=== PATIENT | male | born 1955 | race Caucasian/White ===

== ENCOUNTER 2017-01-18 15:07 | Inpatient (IN) | payer BC, SELFPAY ==
[~2017-01-18] VITALS: Ht 175.3 cm; Wt 101.2 kg
[~2017-01-18 15:07] MED LIST: IBUPROFEN800 M1 PO; IMODIUM2 MG/10 ML GT; NKM; NORCO 5-325 TA1 EACH ORAL; ZOFRAN4 MG ORAL
[2017-01-18 15:23] VITALS: BP 157/94
[2017-01-18] MEDS ORDERED: Ketorolac 30mg Inj IV ONE (15:45)
[2017-01-18 16:18] LABS: KETONES,URINE 2+ (NEGATIVE); LEUKOCYTE ESTERASE ,URINE 1+ (NEGATIVE); NITRITE,URINE NEGATIVE (NEGATIVE); PH,URINE 5 (4.5-8.0); PROTEIN,URINE 2+ (NEGATIVE); UROBILINOGEN,URINE 4 MG/DL (0.0-1.0)
[2017-01-18 16:19] LABS: BASOPHILS % (AUTO) 0.6 % (0.0-2.0); EOSINOPHILS % (AUTO) 0.6 % (0.0-3.0); MEAN CORPUSCULAR HEMOGLOBIN 29.7 PG (27.0-31.0); MEAN CORPUSCULAR HGB CONC 33.6 G/DL (32.0-36.0); MEAN CORPUSCULAR VOLUME 88 FL (80-99); MEAN PLATELET VOLUME 8.3 FL (6.5-10.1); NEUTROPHILS % (AUTO) 76.8 % (45.0-75.0); PLATELET COUNT 190 K/UL (150-450); RED BLOOD COUNT 4.88 M/UL (4.70-6.10); RED CELL DISTRIBUTION WIDTH 12.5 % (11.6-14.8)
[2017-01-18 16:23] LABS: APPEARANCE,URINE SLIGHTLY CLOUDY
[2017-01-18 16:30] VITALS: BP 129/78
[2017-01-18 16:30] LABS: ALBUMIN/GLOBULIN RATIO 1.1 (1.0-2.7); CALCIUM 9.5 mg/dL (8.6-10.2); CREATININE 1.3 mg/dL (0.7-1.2); GLOMERULAR FILTRATION RATE 56.5 mL/min (>60); POTASSIUM 3.5 mEQ/L (3.4-4.9)
[2017-01-18 16:31] LABS: AMORPHOUS SEDIMENT,UR MODERATE /LPF; BACTERIA,URINE MODERATE /HPF
--- NOTE | 2017-01-18 16:51 | Emergency Room Report ---
History of Present Illness General Chief Complaint: Male Urogenital Problems Source: Patient Present Illness HPI 61-year-old male presents ED complaining of abdominal pain. Notes lower abdominal pain which started today. And inability to urinate starting today. Denies history of prostate problems. Pain is lower, right-sided, 8/10, sharp. Nonradiating. No aggravating or relieving factors. Denies fevers or chills. Denies nausea or vomiting. Patient was seen by PMD Dr. Tong referred patient to ED for further workup. Denies any other associated symptoms Allergies: Coded Allergies: MORPHINE (Verified Allergy, Mild, 02/19/14) FAINTS Patient History Past Medical History: none Past Surgical History: none Pertinent Family History: none Social History: Denies: alcohol use, drug use, smoking Immunizations: UTD Reviewed Nursing Documentation: PMH: Agreed, PSxH: Agreed Nursing Documentation-PMH Past Medical History: No Stated History Review of Systems All Other Systems: negative except mentioned in HPI Physical Exam Vital Signs Date Time Temp Pulse Resp B/P Pulse Ox O2 Delivery O2 Flow Rate FiO2 01/18/17 15:08 98.1 77 18 176/94 98 Room Air Sp02 EP Interpretation: reviewed, normal General Appearance: no apparent distress, alert, GCS 15, non-toxic Head: normocephalic Eyes: bilateral eye PERRL, bilateral eye normal inspection ENT: normal ENT inspection Neck: normal inspection Respiratory: chest non-tender, lungs clear, normal breath sounds, speaking full sentences Cardiovascular #1: regular rate, rhythm, no edema Gastrointestinal: normal bowel sounds, soft, non-distended, no guarding, no rebound, tenderness - suprapubic/RLQ Rectal: deferred Genitourinary: no CVA tenderness Musculoskeletal: normal inspection Neurologic: alert, oriented x3, responsive, motor strength/tone normal, sensory intact, speech normal Psychiatric: normal inspection Skin: normal inspection Lymphatic: normal inspection Medical Decision Making Diagnostic Impression: Primary Impression: Nephrolithiasis Additional Impressions: Pyelonephritis ARF (acute renal failure) Qualified Codes: N17.9 - Acute kidney failure, unspecified ER Course Hospital Course 61-year-old M presents to ED with RLQ pain. unable to urinate Differential diagnosis includes-appendicitis, cholecystitis, kidney stone, pyelonephritis Clinical course Patient placed on stretcher. After initial history and physical I ordered labs , IV fluids, pain medications and CT scan. marquez catheter placed. Labs - no leukocytosis, Cr 1.3, LFTs normal, UA - gross blood + bacteria CT scan shows 5mm stone right UVJ with hydronephrosis. given abx. given IVFs. given flomax. Because of increasing creatinine, urinary retention and infection I believe patient should be admitted. Patient be admitted to Dr. Sosa as per request of Dr Tong I feel this is a highly complex case requiring extensive working including EKG/ Rhythm strip, Xray/CT/US, Blood/urine lab work, repeat exams while in ED, and administration of strong opiates/narcotics for pain control, admission to hospital or close patient follow up. Diagnosis - kidney stone, pyelonephritis, ARF Admitted to floor in serious condition Labs Test 01/18/17 15:50 White Blood Count 9.0 K/UL (4.8-10.8) Red Blood Count 4.88 M/UL (4.70-6.10) Hemoglobin 14.5 G/DL (14.2-18.0) Hematocrit 43.1 % (42.0-52.0) Mean Corpuscular Volume 88 FL (80-99) Mean Corpuscular Hemoglobin 29.7 PG (27.0-31.0) Mean Corpuscular Hemoglobin Concent 33.6 G/DL (32.0-36.0) Red Cell Distribution Width 12.5 % (11.6-14.8) Platelet Count 190 K/UL (150-450) Mean Platelet Volume 8.3 FL (6.5-10.1) Neutrophils (%) (Auto) 76.8 % (45.0-75.0) Lymphocytes (%) (Auto) 17.0 % (20.0-45.0) Monocytes (%) (Auto) 5.0 % (1.0-10.0) Eosinophils (%) (Auto) 0.6 % (0.0-3.0) Basophils (%) (Auto) 0.6 % (0.0-2.0) Urine Color Brown Urine Appearance Slightly cloudy Urine pH 5 (4.5-8.0) Urine Specific [place] 1.025 (1.005-1.035) Urine Protein 2+ (NEGATIVE) Urine Glucose (UA) Negative (NEGATIVE) Urine Ketones 2+ (NEGATIVE) Urine Occult Blood 5+ (NEGATIVE) Urine Nitrite Negative (NEGATIVE) Urine Bilirubin Negative (NEGATIVE) Urine Urobilinogen 4 MG/DL (0.0-1.0) Urine Leukocyte Esterase 1+ (NEGATIVE) Urine RBC 10-15 /HPF (0 - 0) Urine WBC 5-10 /HPF (0 - 0) Urine Squamous Epithelial Cells None /LPF (NONE/OCC) Urine Amorphous Sediment Moderate /LPF (NONE) Urine Bacteria Moderate /HPF (NONE) Sodium Level 136 mEQ/L (135-145) Potassium Level 3.5 mEQ/L (3.4-4.9) Chloride Level 95 mEQ/L (98-107) Carbon Dioxide Level 25 mEQ/L (20-30) Anion Gap 16 (5-15) Blood Urea Nitrogen 21 mg/dL (7-23) Creatinine 1.3 mg/dL (0.7-1.2) Estimat Glomerular Filtration Rate 56.5 mL/min (>60) Glucose Level 144 mg/dL (74-106) Calcium Level 9.5 mg/dL (8.6-10.2) Total Bilirubin 0.8 mg/dL (0.0-1.2) Aspartate Amino Transf (AST/SGOT) 13 U/L (5-40) Alanine Aminotransferase (ALT/SGPT) 18 U/L (3-41) Alkaline Phosphatase 49 U/L (40-129) Total Protein 7.0 g/dL (6.6-8.7) Albumin 3.8 g/dL (3.5-5.2) Globulin 3.2 g/dL Albumin/Globulin Ratio 1.1 (1.0-2.7) Lipase 102 U/L (< 60) CT/MRI/US Diagnostic Results CT/MRI/US Diagnostic Results : Imaging Test Ordered: CT A/P Impression 5mm stone at UVJ with moderate hydronephrosis Last Vital Signs Date Time Temp Pulse Resp B/P Pulse Ox O2 Delivery O2 Flow Rate FiO2 01/18/17 15:23 98.0 81 11 157/94 99 Room Air Status: improved Disposition: ADMITTED INPATIENT Condition: Serious THEODORE COHEN M.D. January 18, 2017 16:51
[2017-01-18 17:30] VITALS: BP 131/90
[2017-01-18] MEDS ORDERED: cefTRIAXone 1 GM in NS 55 ML IVPB ONE (17:45)
[2017-01-18] MEDS ORDERED: Tamsulosin 0.4mg cap ORAL ONE (17:45)
[2017-01-18 18:34] VITALS: BP 135/87
[2017-01-18 19:20] VITALS: BP 119/66
[2017-01-18] MEDS ORDERED: Miralax 17gm pkt ORAL PRN (20:00)
[2017-01-18] MEDS ORDERED: Ketorolac 30mg Inj IV PRN (20:00)
[2017-01-18] MEDS ORDERED: Norco 10mg/325mg tab ORAL PRN (20:00)
[2017-01-18] MEDS ORDERED: Norco 5mg/325mg tab ORAL PRN (20:00)
--- NOTE | 2017-01-18 20:21 | History and Physical ---
History of Present Illness General Date patient seen: January 18, 2017 Time patient seen: 20:20 Reason for Hospitalization: UTI, ureteral calculus Present Illness HPI 61y/o male with no sig pmh who presents with R flank and groin pain. Per pt noted R flank pain abt 3 weeks ago and urine was darker. He drank more fluids and pain improved. Then he developed R groin pain on day of presentation to ED. Pain was sharp 8/10, worse with movement. No f/c, n/v, d/c, chest pain, SOB. He went to see his PCP Dr. Tong who referred pt to ED for further eval. In ED, pt noted to have U/A with possible infection. CT a/p showed R 5mm UVJ stone w/ some hydronephrosis. Pt was given IVFs, Toradol, Flomax, Ceftriaxone. Allergies: Coded Allergies: MORPHINE (Verified Allergy, Mild, 02/19/14) FAINTS Medication History Scheduled No Known Medications* (NKM - No Known Medications*), 0 ., (Reported) Discontinued Medications Hydrocodone Bit/Acetaminophen 5-325* ([place] 5-325*), 1 TAB ORAL Q6H PRN for For Pain Discontinued Reason: Pt stopped taking med Ibuprofen (Ibuprofen), 800 MG PO EVERY 8 HOURS Discontinued Reason: Pt stopped taking med Loperamide HCl (Loperamide), 2 MG GT EVERY 3 HOURS Discontinued Reason: Pt stopped taking med Ondansetron (Zofran), 4 MG ORAL Q6H PRN for Nausea & Vomiting Discontinued Reason: Pt stopped taking med Patient History History Provided By: Patient, Family Member, Medical Record, PMD Healthcare decision maker NONE Resuscitation status Advanced Directive on File Past Medical/Surgical History Past Medical/Surgical History: (1) No significant past medical history (2) No significant past surgical history Family History Family History: Patient reports no known family medical history. Social History Social History: (1) No significant social history Review of Systems Constitutional: Reports: no symptoms Eye: Reports: no symptoms ENT: Reports: no symptoms Respiratory: Reports: no symptoms Cardiovascular: Reports: no symptoms Gastrointestinal: Reports: no symptoms Genitourinary: Reports: pain, retention Musculoskeletal: Reports: no symptoms Skin: Reports: no symptoms Psychiatric: Reports: no symptoms Neurological: Reports: no symptoms Endocrine: Reports: no symptoms Hematologic/Lymphatic: Reports: no symptoms Physical Exam Physical Exam Narrative General: alert, cooperative, no distress, appears stated age Head: normocephalic, without obvious abnormality, atraumatic Eyes: conjunctivae/corneas clear. PERRL, EOM's intact Throat: lips, mucosa, and tongue normal. MMM Neck: supple, symmetrical, trachea midline, and no JVD Lungs: clear to auscultation bilaterally Heart: regular rate and rhythm, S1, S2 normal, no murmur, click, rub or gallop Abdomen: soft, non-tender, non-distended, bowel sounds normal; no masses or organomegaly : +R groin TTP Extremities: extremities normal, atraumatic, no cyanosis or edema Pulses: 2+ and symmetric Skin: skin color, texture, turgor normal; no rashes or lesions Neurologic: grossly normal, no focal deficits Last 24 Hour Vital Signs Date Time Temp Pulse Resp B/P Pulse Ox O2 Delivery O2 Flow Rate FiO2 01/18/17 19:20 98.2 76 16 119/66 96 Room Air 01/18/17 18:34 98.2 76 18 135/87 97 Room Air 01/18/17 17:30 83 14 131/90 95 Room Air 01/18/17 16:30 98.3 87 18 129/78 96 Room Air 01/18/17 15:23 98.0 81 11 157/94 99 Room Air 01/18/17 15:08 98.1 77 18 176/94 98 Room Air Laboratory Tests Test 01/18/17 15:50 White Blood Count 9.0 K/UL (4.8-10.8) Red Blood Count 4.88 M/UL (4.70-6.10) Hemoglobin 14.5 G/DL (14.2-18.0) Hematocrit 43.1 % (42.0-52.0) Mean Corpuscular Volume 88 FL (80-99) Mean Corpuscular Hemoglobin 29.7 PG (27.0-31.0) Mean Corpuscular Hemoglobin Concent 33.6 G/DL (32.0-36.0) Red Cell Distribution Width 12.5 % (11.6-14.8) Platelet Count 190 K/UL (150-450) Mean Platelet Volume 8.3 FL (6.5-10.1) Neutrophils (%) (Auto) 76.8 % (45.0-75.0) H Lymphocytes (%) (Auto) 17.0 % (20.0-45.0) L Monocytes (%) (Auto) 5.0 % (1.0-10.0) Eosinophils (%) (Auto) 0.6 % (0.0-3.0) Basophils (%) (Auto) 0.6 % (0.0-2.0) Urine Color Brown Urine Appearance Slightly cloudy Urine pH 5 (4.5-8.0) Urine Specific [place] 1.025 (1.005-1.035) Urine Protein 2+ (NEGATIVE) H Urine Glucose (UA) Negative (NEGATIVE) Urine Ketones 2+ (NEGATIVE) H Urine Occult Blood 5+ (NEGATIVE) H Urine Nitrite Negative (NEGATIVE) Urine Bilirubin Negative (NEGATIVE) Urine Urobilinogen 4 MG/DL (0.0-1.0) H Urine Leukocyte Esterase 1+ (NEGATIVE) H Urine RBC 10-15 /HPF (0 - 0) H Urine WBC 5-10 /HPF (0 - 0) H Urine Squamous Epithelial Cells None /LPF (NONE/OCC) Urine Amorphous Sediment Moderate /LPF (NONE) H Urine Bacteria Moderate /HPF (NONE) H Sodium Level 136 mEQ/L (135-145) Potassium Level 3.5 mEQ/L (3.4-4.9) Chloride Level 95 mEQ/L (98-107) L Carbon Dioxide Level 25 mEQ/L (20-30) Anion Gap 16 (5-15) H Blood Urea Nitrogen 21 mg/dL (7-23) Creatinine 1.3 mg/dL (0.7-1.2) H Estimat Glomerular Filtration Rate 56.5 mL/min (>60) Glucose Level 144 mg/dL (74-106) H Calcium Level 9.5 mg/dL (8.6-10.2) Total Bilirubin 0.8 mg/dL (0.0-1.2) Aspartate Amino Transf (AST/SGOT) 13 U/L (5-40) Alanine Aminotransferase (ALT/SGPT) 18 U/L (3-41) Alkaline Phosphatase 49 U/L (40-129) Total Protein 7.0 g/dL (6.6-8.7) Albumin 3.8 g/dL (3.5-5.2) Globulin 3.2 g/dL Albumin/Globulin Ratio 1.1 (1.0-2.7) Lipase 102 U/L (< 60) H Height (Feet): 5 Height (Inches): 9.00 Weight (Pounds): 223 Medications Current Medications Medications (Trade) Dose Ordered Sig/Gabe Route PRN Reason Start Time Stop Time Status Last Admin Dose Admin Acetaminophen (Tylenol) 650 mg Q4H PRN ORAL Mild Pain (Pain Scale 1-3) 01/18/17 20:00 02/17/17 19:59 Acetaminophen/ Hydrocodone Bitart 1 tab 1 tab Q6H PRN ORAL for moderate pain 01/18/17 20:00 01/25/17 19:59 Acetaminophen/ Hydrocodone Bitart ([place] 10/325) 1 ea Q4H PRN ORAL severe pain 01/18/17 20:00 01/25/17 19:59 Bisacodyl (Dulcolax) 10 mg HSPRN PRN RECTAL Constipation SECOND LINE AGENT 01/18/17 20:00 02/17/17 19:59 Ceftriaxone Sodium/Sodium Chloride (Rocephin/Sodium Chloride) 55 ml @ 110 mls/hr DAILY@1800 IVPB 01/19/17 18:00 01/26/17 17:59 Dextrose (Dextrose 50%) STAT PRN IV Hypoglycemia 01/18/17 20:00 02/17/17 19:59 Diphenhydramine HCl (Benadryl) 25 mg Q6H PRN ORAL Itching/Pruritis 01/18/17 20:00 02/17/17 19:59 Docusate Sodium (Colace) 100 mg EVERY 12 HOURS ORAL 01/18/17 21:00 02/17/17 20:59 Ketorolac Tromethamine (Toradol 30mg) 30 mg Q6H PRN IV moderate to severe pain 01/18/17 20:00 01/23/17 19:59 Ondansetron HCl (Zofran) 4 mg Q6H PRN IVP Nausea & Vomiting 01/18/17 20:00 02/17/17 19:59 Polyethylene Glycol (Miralax) 17 gm HSPRN PRN ORAL Constipation FIRST LINE AGENT 01/18/17 20:00 02/17/17 19:59 Sodium Chloride (0.45% NS 1000ml) 1,000 ml @ 100 mls/hr Q10H IV 01/18/17 21:00 02/17/17 20:59 Tamsulosin HCl (Flomax) 0.4 mg DAILY ORAL 01/19/17 09:00 02/18/17 08:59 Assessment/Plan Problem List: (1) Ureteral calculus, right ICD Codes: N20.1 - Calculus of ureter SNOMED: 21131921 (2) UTI (urinary tract infection) ICD Codes: N39.0 - Urinary tract infection, site not specified SNOMED: 86207842 Status: stable Assessment/Plan Admit inpt Urology consulted Cont marquez (placed in ER) Strain all urine Flomax IVFs Toradol PRN pain Monitor SCr ID consutled Cont ceftriaxone (01/18-) F/u urine culture Pain control, supportive care, bowel regimen DC plannign D/w pt/, PCP Dr. Tong, urology Dr. Flores, ID Dr. Blanco regarding management and disposition. Aleah Montague M.D. January 18, 2017 20:21
[2017-01-18 21:00] VITALS: BP 136/88
[2017-01-18] MEDS: Docusate 100mg cap ORAL SCH (21:00)
[2017-01-19] VITALS: BP 133/86
--- NOTE | 2017-01-19 02:18 | Consultation ---
DATE OF CONSULTATION: 01/18/2017 CONSULTING PHYSICIAN: Harish Flores M.D. REFERRING PHYSICIAN: Dr. Bullard. REASON FOR CONSULTATION: For evaluation of renal colic. HISTORY OF PRESENT ILLNESS: This is a 61-year-old male. He came to the emergency room because of right flank pain. He had a CT scan that showed an obstructing stone in the right distal ureter. Urology evaluation is requested. The patient states his pain is better now. He did have some difficulty voiding. Apparently, a Rincon catheter was placed in the emergency room. He does have a history of ED, apparently he was seen by outside urologist recently Dr. Aria Nickerson. Apparently, he was told that his prostate is not enlarged. At this time, the patient denies dysuria. Denies fevers or chills. PAST MEDICAL HISTORY: Significant for above. PAST SURGICAL HISTORY: Unknown. CURRENT MEDICATIONS: Here in the hospital, the patient is on Dulcolax, Tylenol, MiraLAX, Zofran, and Benadryl. ALLERGIES: To morphine. SOCIAL HISTORY: He is currently nonsmoker. FAMILY HISTORY: Noncontributory. REVIEW OF SYSTEMS: No chest pain. PHYSICAL EXAMINATION: GENERAL: An elderly male, in no acute distress. VITAL SIGNS: Temperature is 98.2 degrees, blood pressure is 119/66, pulse 76, and respirations 16. HEENT: Normocephalic. NECK: Supple. ABDOMEN: Soft. BACK: No CVA tenderness. GENITOURINARY: He has normal phallus. Rincon is in place. Urine is yellow. RECTAL: Deferred. EXTREMITIES: No clubbing or cyanosis. LABORATORY DATA: White count is 9.1, hemoglobin 14.5, and platelets of 190,000. BUN is 21 and creatinine 1.3. Potassium 3.5. UA shows 2+ protein, 10 to 15 RBCs, 5 to 10 WBCs, and moderate bacteria. DIAGNOSTIC IMAGING STUDIES: The patient had a CT scan of the abdomen and pelvis. The final report is not back yet, however, I did review the films. There is evidence of a 5 mm stone in the right distal ureter and mild hydronephrosis. IMPRESSION: 1. Renal colic secondary to right distal ureteral calculus. 2. Hydronephrosis secondary to above. 3. Urinary retention. 4. Hematuria. 5. Pyuria. 6. Proteinuria. PLAN AND DISCUSSION: We had a long discussion with the patient. He has a 5 mm distal stone on the right side. There is a chance that he can pass the stone. As such, he wants to continue the trial of passage. At this point, we will strain his urine. Flomax has been added. I will also agree with antibiotics as ordered. We will follow up on cultures that were ordered in the ER. If he is not able to pass the stone, if he has fevers, or develop increased pain, he may need endoscopic retrieval of the stone. The above was discussed with the patient and his . I will follow the patient and any other recommendations will be forthcoming. Thank you, Dr. Bullard, for asking me to participate in this consultation. Harish Flores M.D. DR: YARELIS JOB#: [id number] CC:
[2017-01-19 07:29] LABS: ANION GAP 14 (5-15); CALCIUM 9.2 mg/dL (8.6-10.2); CARBON DIOXIDE 26 mEQ/L (20-30); CHLORIDE 98 mEQ/L (98-107); CREATININE 1.1 mg/dL (0.7-1.2); GLOMERULAR FILTRATION RATE > 60 mL/min (>60); HEMOLYSIS 4; MAGNESIUM 2.1 mg/dL (1.7-2.5); MEAN CORPUSCULAR HEMOGLOBIN 29.8 PG (27.0-31.0); MEAN CORPUSCULAR HGB CONC 33.7 G/DL (32.0-36.0); MEAN CORPUSCULAR VOLUME 88 FL (80-99); MEAN PLATELET VOLUME 8.5 FL (6.5-10.1); MONOCYTES % (AUTO) 6.6 % (1.0-10.0); NEUTROPHILS % (AUTO) 59.4 % (45.0-75.0); PLATELET COUNT 180 K/UL (150-450); POTASSIUM 4.2 mEQ/L (3.4-4.9); RED BLOOD COUNT 4.73 M/UL (4.70-6.10); RED CELL DISTRIBUTION WIDTH 12.6 % (11.6-14.8); SODIUM 138 mEQ/L (135-145); WHITE BLOOD COUNT 5.8 K/UL (4.8-10.8)
[2017-01-19 07:30] LABS: EOSINOPHILS % (AUTO) 2.1 % (0.0-3.0)
--- NOTE | 2017-01-19 08:35 | Diagnostic Imaging Report ---
Indication: Abdominal pain Technique: Continuous helical transaxial imaging of the abdomen and pelvis was obtained from the lung bases to the pubic symphysis during intravenous contrast administration. Coronal 2-D reformats were also obtained. Study obtained in a Siemens sensation [address] Total Dose length Product (DLP): [address] Dose Index Volume (CTDIvol): 19.4 mGy Comparison: None Findings: There is a 5 mm stone in the right distal ureter at the ureterovesical junction associated with mild right hydroureter/hydronephrosis. There are parapelvic cysts within the left kidney. No other stones are seen. Appendix is normal. Bilateral inguinal hernias containing fat demonstrated larger on the right compared to the left. No free fluid or free air identified. Minimal posterior basilar atelectasis demonstrated. Solid organs are unremarkable in appearance. Gallbladder is unremarkable. Diverticula noted within the colon. Rincon catheter in good position. Impression: 5 mm right UVJ stone with hydronephrosis. Normal appendix Parapelvic cysts within the left kidney. Diverticulosis of the colon. No definite diverticulitis. Rincon catheter Bilateral inguinal hernias containing fat. Atherosclerotic vascular disease. Basilar atelectasis Hiatal hernia The CT scanner at [facility] is accredited by the [employer] and the scans are performed using protocols designed to limit radiation exposure to as low as reasonably achievable to attain images of sufficient resolution adequate for diagnostic evaluation.
[2017-01-19 08:54] VITALS: BP 135/85
[2017-01-19] MEDS: Tamsulosin 0.4mg cap ORAL SCH (09:39)
[2017-01-19] MEDS: Docusate 100mg cap ORAL SCH ×2 (09:39→20:37)
--- NOTE | 2017-01-19 10:01 | Urology Progress Note ---
Assessment/Plan Assessment/Plan 1. Renal colic secondary to right distal ureteral calculus. 2. Hydronephrosis secondary to above. 3. Urinary retention. 4. Hematuria. 5. Pyuria. 6. Proteinuria. trial of passage flomax abx strain urine f/u on urine cx d/w pt d/w Dr. Bullard Subjective Allergies: Coded Allergies: MORPHINE (Verified Allergy, Mild, 02/19/14) FAINTS Subjective feels fair, minimal pain, no obvious stone passed Objective Last 24 Hour Vital Signs Date Time Temp Pulse Resp B/P Pulse Ox O2 Delivery O2 Flow Rate FiO2 01/19/17 08:54 97.7 93 18 135/85 94 Room Air 93 01/19/17 00:00 97.8 70 18 133/86 95 Room Air 01/18/17 21:00 97.9 70 19 136/88 95 Room Air 01/18/17 19:50 98.2 76 16 119/66 96 Room Air 01/18/17 19:20 98.2 76 16 119/66 96 Room Air 01/18/17 18:34 98.2 76 18 135/87 97 Room Air 01/18/17 17:30 83 14 131/90 95 Room Air 01/18/17 16:30 98.3 87 18 129/78 96 Room Air 01/18/17 15:23 98.0 81 11 157/94 99 Room Air 01/18/17 15:08 98.1 77 18 176/94 98 Room Air Intake and Output 01/18/17 01/19/17 19:00 07:00 Intake Total 555 ml 220 ml Output Total 1700 ml Balance 555 ml -1480 ml Intake Oral 0 ml 220 ml IV Total 555 ml Output Urine Total 1700 ml Microbiology Date/Time Source Procedure Growth Status 01/18/17 15:50 Urine,Clean Catch Urine Culture - Preliminary NO GROWTH Resulted Current Medications Medications (Trade) Dose Ordered Sig/Gabe Route PRN Reason Start Time Stop Time Status Last Admin Dose Admin Acetaminophen (Tylenol) 650 mg Q4H PRN ORAL Mild Pain (Pain Scale 1-3) 01/18/17 20:00 02/17/17 19:59 Acetaminophen/ Hydrocodone Bitart 1 ea 1 ea Q4H PRN ORAL severe pain 01/18/17 20:00 01/25/17 19:59 Acetaminophen/ Hydrocodone Bitart 1 tab 1 tab Q6H PRN ORAL for moderate pain 01/18/17 20:00 01/25/17 19:59 Bisacodyl (Dulcolax) 10 mg HSPRN PRN RECTAL Constipation SECOND LINE AGENT 01/18/17 20:00 02/17/17 19:59 Ceftriaxone Sodium/Sodium Chloride (Rocephin/Sodium Chloride) 55 ml @ 110 mls/hr DAILY@1800 IVPB 01/19/17 18:00 01/26/17 17:59 Dextrose (Dextrose 50%) STAT PRN IV Hypoglycemia 01/18/17 20:00 02/17/17 19:59 Diphenhydramine HCl (Benadryl) 25 mg Q6H PRN ORAL Itching/Pruritis 01/18/17 20:00 02/17/17 19:59 Docusate Sodium (Colace) 100 mg EVERY 12 HOURS ORAL 01/18/17 21:00 02/17/17 20:59 01/19/17 09:39 Ketorolac Tromethamine (Toradol 30mg) 30 mg Q6H PRN IV moderate to severe pain 01/18/17 20:00 01/23/17 19:59 Ondansetron HCl (Zofran) 4 mg Q6H PRN IVP Nausea & Vomiting 01/18/17 20:00 02/17/17 19:59 Polyethylene Glycol (Miralax) 17 gm HSPRN PRN ORAL Constipation FIRST LINE AGENT 01/18/17 20:00 02/17/17 19:59 Sodium Chloride (Sodium Chloride 1000ml bag) 1,000 ml @ 100 mls/hr Q10H IV 01/18/17 21:00 02/17/17 20:59 01/19/17 06:59 Tamsulosin HCl (Flomax) 0.4 mg DAILY ORAL 01/19/17 09:00 02/18/17 08:59 01/19/17 09:39 Laboratory Tests 01/18/17 15:50: White Blood Count 9.0, Red Blood Count 4.88, Hemoglobin 14.5, Hematocrit 43.1, Mean Corpuscular Volume 88, Mean Corpuscular Hemoglobin 29.7, Mean Corpuscular Hemoglobin Concent 33.6, Red Cell Distribution Width 12.5, Platelet Count 190, Mean Platelet Volume 8.3, Neutrophils (%) (Auto) 76.8H, Lymphocytes (%) (Auto) 17.0L, Monocytes (%) (Auto) 5.0, Eosinophils (%) (Auto) 0.6, Basophils (%) (Auto ) 0.6, Urine Color Brown, Urine Appearance Slightly cloudy, Urine pH 5, Urine Specific [place] 1.025, Urine Protein 2+H, Urine Glucose (UA) Negative, Urine Ketones 2+H, Urine Occult Blood 5+H, Urine Nitrite Negative, Urine Bilirubin Negative, Urine Urobilinogen 4H, Urine Leukocyte Esterase 1+H, Urine RBC 10-15H , Urine WBC 5-10H, Urine Squamous Epithelial Cells None, Urine Amorphous Sediment ModerateH, Urine Bacteria ModerateH, Sodium Level 136, Potassium Level 3.5, Chloride Level 95L, Carbon Dioxide Level 25, Anion Gap 16H, Blood Urea Nitrogen 21, Creatinine 1.3H, Estimat Glomerular Filtration Rate 56.5, Glucose Level 144H, Calcium Level 9.5, Total Bilirubin 0.8, Aspartate Amino Transf (AST/ SGOT) 13, Alanine Aminotransferase (ALT/SGPT) 18, Alkaline Phosphatase 49, Total Protein 7.0, Albumin 3.8, Globulin 3.2, Albumin/Globulin Ratio 1.1, Lipase 102H 01/19/17 06:00: White Blood Count 5.8, Red Blood Count 4.73, Hemoglobin 14.1L, Hematocrit 41.8L , Mean Corpuscular Volume 88, Mean Corpuscular Hemoglobin 29.8, Mean Corpuscular Hemoglobin Concent 33.7, Red Cell Distribution Width 12.6, Platelet Count 180, Mean Platelet Volume 8.5, Neutrophils (%) (Auto) 59.4, Lymphocytes (% ) (Auto) 31.0, Monocytes (%) (Auto) 6.6, Eosinophils (%) (Auto) 2.1, Basophils ( %) (Auto) 1.0, Sodium Level 138, Potassium Level 4.2, Chloride Level 98, Carbon Dioxide Level 26, Anion Gap 14, Blood Urea Nitrogen 18, Creatinine 1.1, Estimat Glomerular Filtration Rate > 60, Glucose Level 103, Calcium Level 9.2, Magnesium Level 2.1 Height (Feet): 5 Height (Inches): 9.00 Weight (Pounds): 223 PAUL BELL January 19, 2017 10:01
--- NOTE | 2017-01-19 11:00 | Infectious Diseases Prog Note ---
Assessment/Plan Assessment/Plan Full consult dictated: A) 1) ? uti/pyelonephritis, kidney stone, hydronephrosis, pyuria, hematuria 2) pmh o/w negative 3) allergies - morphine 4) sh-negative, fh-nc, mar noted, notes and records reviewed 5) d/w RN P) 1) rocephin 2) check uc 3) urology f/u 4) continue treatment per primary 5) communicated with Dr. Bullard 6) orders noted 7) d/w patient and Subjective Allergies: Coded Allergies: MORPHINE (Verified Allergy, Mild, 02/19/14) FAINTS Objective Vital Signs Last 24 Hour Vital Signs Date Time Temp Pulse Resp B/P Pulse Ox O2 Delivery O2 Flow Rate FiO2 01/19/17 08:54 97.7 93 18 135/85 94 Room Air 93 01/19/17 00:00 97.8 70 18 133/86 95 Room Air 01/18/17 21:00 97.9 70 19 136/88 95 Room Air 01/18/17 19:50 98.2 76 16 119/66 96 Room Air 01/18/17 19:20 98.2 76 16 119/66 96 Room Air 01/18/17 18:34 98.2 76 18 135/87 97 Room Air 01/18/17 17:30 83 14 131/90 95 Room Air 01/18/17 16:30 98.3 87 18 129/78 96 Room Air 01/18/17 15:23 98.0 81 11 157/94 99 Room Air 01/18/17 15:08 98.1 77 18 176/94 98 Room Air Height (Feet): 5 Height (Inches): 9.00 Weight (Pounds): 223 Microbiology Date/Time Source Procedure Growth Status 01/18/17 15:50 Urine,Clean Catch Urine Culture - Preliminary NO GROWTH Resulted Laboratory Tests Test 01/18/17 15:50 01/19/17 06:00 White Blood Count 9.0 K/UL (4.8-10.8) 5.8 K/UL (4.8-10.8) Red Blood Count 4.88 M/UL (4.70-6.10) 4.73 M/UL (4.70-6.10) Hemoglobin 14.5 G/DL (14.2-18.0) 14.1 G/DL (14.2-18.0) L Hematocrit 43.1 % (42.0-52.0) 41.8 % (42.0-52.0) L Mean Corpuscular Volume 88 FL (80-99) 88 FL (80-99) Mean Corpuscular Hemoglobin 29.7 PG (27.0-31.0) 29.8 PG (27.0-31.0) Mean Corpuscular Hemoglobin Concent 33.6 G/DL (32.0-36.0) 33.7 G/DL (32.0-36.0) Red Cell Distribution Width 12.5 % (11.6-14.8) 12.6 % (11.6-14.8) Platelet Count 190 K/UL (150-450) 180 K/UL (150-450) Mean Platelet Volume 8.3 FL (6.5-10.1) 8.5 FL (6.5-10.1) Neutrophils (%) (Auto) 76.8 % (45.0-75.0) H 59.4 % (45.0-75.0) Lymphocytes (%) (Auto) 17.0 % (20.0-45.0) L 31.0 % (20.0-45.0) Monocytes (%) (Auto) 5.0 % (1.0-10.0) 6.6 % (1.0-10.0) Eosinophils (%) (Auto) 0.6 % (0.0-3.0) 2.1 % (0.0-3.0) Basophils (%) (Auto) 0.6 % (0.0-2.0) 1.0 % (0.0-2.0) Urine Color Brown Urine Appearance Slightly cloudy Urine pH 5 (4.5-8.0) Urine Specific [place] 1.025 (1.005-1.035) Urine Protein 2+ (NEGATIVE) H Urine Glucose (UA) Negative (NEGATIVE) Urine Ketones 2+ (NEGATIVE) H Urine Occult Blood 5+ (NEGATIVE) H Urine Nitrite Negative (NEGATIVE) Urine Bilirubin Negative (NEGATIVE) Urine Urobilinogen 4 MG/DL (0.0-1.0) H Urine Leukocyte Esterase 1+ (NEGATIVE) H Urine RBC 10-15 /HPF (0 - 0) H Urine WBC 5-10 /HPF (0 - 0) H Urine Squamous Epithelial Cells None /LPF (NONE/OCC) Urine Amorphous Sediment Moderate /LPF (NONE) H Urine Bacteria Moderate /HPF (NONE) H Sodium Level 136 mEQ/L (135-145) 138 mEQ/L (135-145) Potassium Level 3.5 mEQ/L (3.4-4.9) 4.2 mEQ/L (3.4-4.9) Chloride Level 95 mEQ/L (98-107) L 98 mEQ/L (98-107) Carbon Dioxide Level 25 mEQ/L (20-30) 26 mEQ/L (20-30) Anion Gap 16 (5-15) H 14 (5-15) Blood Urea Nitrogen 21 mg/dL (7-23) 18 mg/dL (7-23) Creatinine 1.3 mg/dL (0.7-1.2) H 1.1 mg/dL (0.7-1.2) Estimat Glomerular Filtration Rate 56.5 mL/min (>60) > 60 mL/min (>60) Glucose Level 144 mg/dL (74-106) H 103 mg/dL (74-106) Calcium Level 9.5 mg/dL (8.6-10.2) 9.2 mg/dL (8.6-10.2) Total Bilirubin 0.8 mg/dL (0.0-1.2) Aspartate Amino Transf (AST/SGOT) 13 U/L (5-40) Alanine Aminotransferase (ALT/SGPT) 18 U/L (3-41) Alkaline Phosphatase 49 U/L (40-129) Total Protein 7.0 g/dL (6.6-8.7) Albumin 3.8 g/dL (3.5-5.2) Globulin 3.2 g/dL Albumin/Globulin Ratio 1.1 (1.0-2.7) Lipase 102 U/L (< 60) H Magnesium Level 2.1 mg/dL (1.7-2.5) Current Medications Medications (Trade) Dose Ordered Sig/Gabe Route PRN Reason Start Time Stop Time Status Last Admin Dose Admin Acetaminophen (Tylenol) 650 mg Q4H PRN ORAL Mild Pain (Pain Scale 1-3) 01/18/17 20:00 02/17/17 19:59 Acetaminophen/ Hydrocodone Bitart 1 ea 1 ea Q4H PRN ORAL severe pain 01/18/17 20:00 01/25/17 19:59 Acetaminophen/ Hydrocodone Bitart 1 tab 1 tab Q6H PRN ORAL for moderate pain 01/18/17 20:00 01/25/17 19:59 Bisacodyl (Dulcolax) 10 mg HSPRN PRN RECTAL Constipation SECOND LINE AGENT 01/18/17 20:00 02/17/17 19:59 Ceftriaxone Sodium/Sodium Chloride (Rocephin/Sodium Chloride) 55 ml @ 110 mls/hr DAILY@1800 IVPB 01/19/17 18:00 01/26/17 17:59 Dextrose (Dextrose 50%) STAT PRN IV Hypoglycemia 01/18/17 20:00 02/17/17 19:59 Diphenhydramine HCl (Benadryl) 25 mg Q6H PRN ORAL Itching/Pruritis 01/18/17 20:00 02/17/17 19:59 Docusate Sodium (Colace) 100 mg EVERY 12 HOURS ORAL 01/18/17 21:00 02/17/17 20:59 01/19/17 09:39 Ketorolac Tromethamine (Toradol 30mg) 30 mg Q6H PRN IV moderate to severe pain 01/18/17 20:00 01/23/17 19:59 Ondansetron HCl (Zofran) 4 mg Q6H PRN IVP Nausea & Vomiting 01/18/17 20:00 02/17/17 19:59 Polyethylene Glycol (Miralax) 17 gm HSPRN PRN ORAL Constipation FIRST LINE AGENT 01/18/17 20:00 02/17/17 19:59 Sodium Chloride (Sodium Chloride 1000ml bag) 1,000 ml @ 100 mls/hr Q10H IV 01/18/17 21:00 02/17/17 20:59 01/19/17 06:59 Tamsulosin HCl (Flomax) 0.4 mg DAILY ORAL 01/19/17 09:00 02/18/17 08:59 01/19/17 09:39 GRZEGORZ HERNÁNDEZ January 19, 2017 11:00
[2017-01-19 11:48] VITALS: BP 131/86
[2017-01-19 16:08] VITALS: BP 129/76
[2017-01-19] MEDS ORDERED: cefTRIAXone 1 GM in NS 55 ML IVPB SCH (18:00)
[2017-01-19 20:55] VITALS: BP 129/68
--- NOTE | 2017-01-19 21:38 | Consultation ---
DATE OF CONSULTATION: 01/19/2017 INFECTIOUS DISEASE CONSULTATION ATTENDING PHYSICIAN: Poli Sosa M.D. REASON FOR CONSULTATION: Possible UTI, pyelonephritis. The patient's chief complaint coming in the hospital is possible UTI, kidney stone, pain, and urinary retention. HISTORY OF PRESENT ILLNESS: This is a 61-year-old male who comes into [facility] with lower abdominal pain. The patient also had discoloration of urine. The patient looks like he also had urinary retention. He also had right flank pain. He had difficulty voiding, he did have urinary retention. The patient had a positive urinalysis and worried if the patient could have UTI or pyelonephritis. The patient was started on Rocephin 1 g IV q.24 h. Urine culture so far is negative. CT scan of the abdomen and pelvis revealed a 5 mm stone in the right distal ureter at the ureterovesicular junction with hydronephrosis and hydroureter that was mild. The patient was started on Rocephin and again urine culture negative so far. MAR was noted. Orders were noted. Notes and records were reviewed. Case discussed with RN. Case discussed with the patient and and case was communicated with Dr. Bullard yesterday. PAST MEDICAL HISTORY: Otherwise negative. He has no history of diabetes or hypertension. No history of kidney stones in the past. There is no history of UTI. MEDICATIONS: Upon reviewing the MAR, the patient is on the following medications. He is on Rocephin. He is on Flomax. He is on Colace, Tylenol, Dulcolax, MiraLAX, Zofran, Benadryl, he is on Ketoralac, hydrocodone, and Blum. Please see medications in the medical order. ALLERGIES: Morphine. FAMILY HISTORY: Noncontributory. Negative for exposure of tuberculosis or cancer. SOCIAL HISTORY: Negative for smoking, alcohol or drug abuse. REVIEW OF SYSTEMS: Constitutional: No mention of fever, chills, weakness. He does have lower abdominal pain and right flank pain. Head And Neck: No mention of neck pain or neck stiffness. Cardiac: No chest pain. Gastrointestinal: No nausea, vomiting, or diarrhea. Genitourinary: No dysuria or frequency. Pulmonary: No congestion or shortness of breath. Skin: No rash. Neurological: No mention of seizures or weakness. No mention of weight loss. PHYSICAL EXAMINATION: VITAL SIGNS: Temperature 97.7 degrees, pulse rate 93, respiratory rate 18, blood pressure 135/85, and saturation 94%. The patient has no significant temperature spikes. HEAD AND NECK: Normocephalic. No facial droop. Neck is supple. HEART: Regular. No gallop or murmur. ABDOMEN: Soft. Positive bowel sounds. Nontender. No abdominal pain or flank pain at this time. I believe this has improved. LUNGS: Clear bilaterally. No rhonchi or rales. SKIN: No rash or dermatitis. MUSCULOSKELETAL: No effusion or contractures. Lower extremities without cellulitis. PERIPHERAL VASCULAR: No evidence of cyanosis. GENITOURINARY: No [place]. No obvious CVA tenderness at this time. LINE SITES: He has IVs and no phlebitis noted. NEUROLOGIC: Intact. Nonfocal. Alert and oriented x3. LABORATORY AND DIAGNOSTIC DATA: Laboratory data is as follows, white count 5.8 and hemoglobin 14.1. The patient's creatinine was 1.3, now it is normal at 1.1. LFTs were noted. Lipase was slightly elevated at 102 degrees, unclear significance of that. Urinalysis has 1+ leukocyte esterase, 5 to 10 white blood cells, moderate bacteria. Urine culture is negative x24 hours. Note, the patient has not been on antibiotics prior to admission. CT scan of the abdomen and pelvis with contrast showed a 5 mm right kidney stone with hydronephrosis, otherwise no diverticulitis or abscess mentioned. ASSESSMENT AND PLAN: 1. Questionable urinary tract infection, pyelonephritis. The patient has renal colic or kidney stone, which certainly can cause an abnormal urinalysis. Urine culture so far is negative and the patient has not been on prior antibiotics prior to admission. At this time, we will continue on Rocephin. Check final urine culture. Continue treatment per Urology. The patient is on Flomax for passing of the kidney stone. The patient seems to be clinically stable at this time with regards to pain. Continue Rocephin. Check final urine culture and continue other treatment per Dr. Bullard. 2. Past medical history otherwise negative. 3. Allergies to morphine. 4. Social history negative. 5. Case discussed with RN. 6. Case discussed with the patient and the and the case communicated with Dr. Bullard yesterday. 7. Continue to follow up with Dr. Bullard, Neurology. 8. MAR was noted. 9. Ordered were noted. 10. Notes were reviewed. , who is his associate to see this patient. Demetris Frazier M.D. DR: REFUGIO JOB#: [id number] CC:
[2017-01-19 23:43] VITALS: BP 126/64
[2017-01-20 04:00] VITALS: BP 156/89
[2017-01-20 06:33] LABS: BASOPHILS % (AUTO) 0.9 % (0.0-2.0); EOSINOPHILS % (AUTO) 3.2 % (0.0-3.0); LYMPHOCYTES % (AUTO) 33.3 % (20.0-45.0); MEAN CORPUSCULAR HEMOGLOBIN 29.6 PG (27.0-31.0); MEAN CORPUSCULAR HGB CONC 33.4 G/DL (32.0-36.0); MEAN CORPUSCULAR VOLUME 89 FL (80-99); MEAN PLATELET VOLUME 8.2 FL (6.5-10.1); NEUTROPHILS % (AUTO) 57.7 % (45.0-75.0); PLATELET COUNT 186 K/UL (150-450); RED CELL DISTRIBUTION WIDTH 12.3 % (11.6-14.8); WHITE BLOOD COUNT 5.6 K/UL (4.8-10.8)
[2017-01-20 06:56] LABS: ANION GAP 13 (5-15); CALCIUM 8.9 mg/dL (8.6-10.2); CARBON DIOXIDE 25 mEQ/L (20-30); CHLORIDE 102 mEQ/L (98-107); CREATININE 1.1 mg/dL (0.7-1.2); GLOMERULAR FILTRATION RATE > 60 mL/min (>60); HEMOLYSIS 4; POTASSIUM 4.1 mEQ/L (3.4-4.9); SODIUM 140 mEQ/L (135-145)
[2017-01-20 07:44] VITALS: BP 145/85
[2017-01-20] MEDS: Tamsulosin 0.4mg cap ORAL SCH (08:21)
[2017-01-20] MEDS: Docusate 100mg cap ORAL SCH (08:21)
--- NOTE | 2017-01-20 09:01 | General Progress Note ---
Assessment/Plan Problem List: (1) Ureteral calculus, right ICD Codes: N20.1 - Calculus of ureter SNOMED: 46009391 (2) UTI (urinary tract infection) ICD Codes: N39.0 - Urinary tract infection, site not specified SNOMED: 28304808 Status: stable Assessment/Plan Urology consulted Cont marquez (placed in ER) Strain all urine Flomax IVFs Toradol PRN pain Monitor SCr ID consutled Cont ceftriaxone (5/8-) F/u urine culture Pain control, supportive care, bowel regimen DC plannign D/w pt/, PCP Dr. Tong, urology Dr. Flores, ID Dr. Blanco regarding management and disposition. Subjective Date patient seen: January 19, 2017 Time patient seen: 12:00 ROS Limited/Unobtainable: No Constitutional: Reports: no symptoms HEENT: Reports: no symptoms Cardiovascular: Reports: no symptoms Respiratory: Reports: no symptoms Gastrointestinal/Abdominal: Reports: no symptoms Genitourinary: Reports: no symptoms Neurologic/Psychiatric: Reports: no symptoms Endocrine: Reports: no symptoms Hematologic/Lymphatic: Reports: no symptoms Allergies: Coded Allergies: MORPHINE (Verified Allergy, Mild, 02/19/14) FAINTS All Systems: reviewed and negative except above Subjective Doing well Pain improved Cont w/ marquez Per , she may have seen something in marquez last night but unfortunately urine was not strained Objective Last 24 Hour Vital Signs Date Time Temp Pulse Resp B/P Pulse Ox O2 Delivery O2 Flow Rate FiO2 01/20/17 07:44 96.8 86 18 145/85 86 Room Air 86 01/20/17 04:00 97.7 73 18 156/89 93 Room Air 01/19/17 23:43 97.6 80 18 126/64 96 Room Air 01/19/17 20:55 97.7 81 18 129/68 96 Room Air 01/19/17 16:08 98.8 84 20 129/76 95 Room Air 84 01/19/17 11:48 97.3 90 17 131/86 94 Room Air 88 Intake and Output 01/19/17 01/20/17 19:00 07:00 Intake Total 1560 ml 1275 ml Balance 1560 ml 1275 ml Intake Oral 360 ml 475 ml IV Total 1200 ml 800 ml # Voids 2 Laboratory Tests 5/10/17 04:55: White Blood Count 5.6, Red Blood Count 4.50L, Hemoglobin 13.3L, Hematocrit 39.9L , Mean Corpuscular Volume 89, Mean Corpuscular Hemoglobin 29.6, Mean Corpuscular Hemoglobin Concent 33.4, Red Cell Distribution Width 12.3, Platelet Count 186, Mean Platelet Volume 8.2, Neutrophils (%) (Auto) 57.7, Lymphocytes (% ) (Auto) 33.3, Monocytes (%) (Auto) 5.0, Eosinophils (%) (Auto) 3.2H, Basophils (%) (Auto) 0.9, Sodium Level 140, Potassium Level 4.1, Chloride Level 102, Carbon Dioxide Level 25, Anion Gap 13, Blood Urea Nitrogen 12, Creatinine 1.1, Estimat Glomerular Filtration Rate > 60, Glucose Level 119H, Calcium Level 8.9 Height (Feet): 5 Height (Inches): 9.00 Weight (Pounds): 223 Objective General: alert, cooperative, no distress, appears stated age Head: normocephalic, without obvious abnormality, atraumatic Eyes: conjunctivae/corneas clear. PERRL, EOM's intact Throat: lips, mucosa, and tongue normal. MMM Neck: supple, symmetrical, trachea midline, and no JVD Lungs: clear to auscultation bilaterally Heart: regular rate and rhythm, S1, S2 normal, no murmur, click, rub or gallop Abdomen: soft, non-tender, non-distended, bowel sounds normal; no masses or organomegaly Extremities: extremities normal, atraumatic, no cyanosis or edema Pulses: 2+ and symmetric Skin: skin color, texture, turgor normal; no rashes or lesions Neurologic: grossly normal, no focal deficits Aleah Montague M.D. January 20, 2017 09:01
--- NOTE | 2017-01-20 09:22 | Urology Progress Note ---
Assessment/Plan Assessment/Plan 1. Renal colic secondary to right distal ureteral calculus. 2. Hydronephrosis secondary to above. 3. Urinary retention. 4. Hematuria. 5. Pyuria. 6. Proteinuria. trial of passage flomax abx strain urine f/u on urine cx check KUB d/w pt Subjective Allergies: Coded Allergies: MORPHINE (Verified Allergy, Mild, 02/19/14) FAINTS Subjective feels fair, minimal pain, no obvious stone passed Objective Last 24 Hour Vital Signs Date Time Temp Pulse Resp B/P Pulse Ox O2 Delivery O2 Flow Rate FiO2 01/20/17 07:44 96.8 86 18 145/85 86 Room Air 86 01/20/17 04:00 97.7 73 18 156/89 93 Room Air 01/19/17 23:43 97.6 80 18 126/64 96 Room Air 01/19/17 20:55 97.7 81 18 129/68 96 Room Air 01/19/17 16:08 98.8 84 20 129/76 95 Room Air 84 01/19/17 11:48 97.3 90 17 131/86 94 Room Air 88 Intake and Output 01/19/17 01/20/17 19:00 07:00 Intake Total 1560 ml 1275 ml Balance 1560 ml 1275 ml Intake Oral 360 ml 475 ml IV Total 1200 ml 800 ml # Voids 2 Microbiology Date/Time Source Procedure Growth Status 01/18/17 15:50 Urine,Clean Catch Urine Culture - Preliminary NO GROWTH Resulted Current Medications Medications (Trade) Dose Ordered Sig/Gabe Route PRN Reason Start Time Stop Time Status Last Admin Dose Admin Acetaminophen (Tylenol) 650 mg Q4H PRN ORAL Mild Pain (Pain Scale 1-3) 01/18/17 20:00 02/17/17 19:59 Acetaminophen/ Hydrocodone Bitart 1 ea 1 ea Q4H PRN ORAL severe pain 01/18/17 20:00 01/25/17 19:59 Acetaminophen/ Hydrocodone Bitart 1 tab 1 tab Q6H PRN ORAL for moderate pain 01/18/17 20:00 01/25/17 19:59 Bisacodyl (Dulcolax) 10 mg HSPRN PRN RECTAL Constipation SECOND LINE AGENT 01/18/17 20:00 02/17/17 19:59 Ceftriaxone Sodium/Sodium Chloride (Rocephin/Sodium Chloride) 55 ml @ 110 mls/hr DAILY@1800 IVPB 01/19/17 18:00 01/26/17 17:59 01/19/17 17:56 Dextrose (Dextrose 50%) STAT PRN IV Hypoglycemia 01/18/17 20:00 02/17/17 19:59 Diphenhydramine HCl (Benadryl) 25 mg Q6H PRN ORAL Itching/Pruritis 01/18/17 20:00 02/17/17 19:59 Docusate Sodium (Colace) 100 mg EVERY 12 HOURS ORAL 01/18/17 21:00 02/17/17 20:59 01/20/17 08:21 Ketorolac Tromethamine (Toradol 30mg) 30 mg Q6H PRN IV moderate to severe pain 01/18/17 20:00 01/23/17 19:59 Ondansetron HCl (Zofran) 4 mg Q6H PRN IVP Nausea & Vomiting 01/18/17 20:00 02/17/17 19:59 Polyethylene Glycol (Miralax) 17 gm HSPRN PRN ORAL Constipation FIRST LINE AGENT 01/18/17 20:00 02/17/17 19:59 Sodium Chloride (Sodium Chloride 1000ml bag) 1,000 ml @ 100 mls/hr Q10H IV 01/18/17 21:00 02/17/17 20:59 01/20/17 03:07 Tamsulosin HCl (Flomax) 0.4 mg DAILY ORAL 01/19/17 09:00 02/18/17 08:59 01/20/17 08:21 Laboratory Tests 01/20/17 04:55: White Blood Count 5.6, Red Blood Count 4.50L, Hemoglobin 13.3L, Hematocrit 39.9L , Mean Corpuscular Volume 89, Mean Corpuscular Hemoglobin 29.6, Mean Corpuscular Hemoglobin Concent 33.4, Red Cell Distribution Width 12.3, Platelet Count 186, Mean Platelet Volume 8.2, Neutrophils (%) (Auto) 57.7, Lymphocytes (% ) (Auto) 33.3, Monocytes (%) (Auto) 5.0, Eosinophils (%) (Auto) 3.2H, Basophils (%) (Auto) 0.9, Sodium Level 140, Potassium Level 4.1, Chloride Level 102, Carbon Dioxide Level 25, Anion Gap 13, Blood Urea Nitrogen 12, Creatinine 1.1, Estimat Glomerular Filtration Rate > 60, Glucose Level 119H, Calcium Level 8.9 Height (Feet): 5 Height (Inches): 9.00 Weight (Pounds): 223 PAUL BELL January 20, 2017 09:22
[2017-01-20] MEDS ORDERED: Tubing IV Secondary IV ONE (10:19)
[2017-01-20 11:37] VITALS: BP 147/91
--- NOTE | 2017-01-20 11:52 | Diagnostic Imaging Report ---
Indication: Abdominal pain Comparison: None Single view of the abdomen obtained Findings: Bowel gas pattern is nonspecific. No mass, ectopic calcifications, or abnormal gas collections are identified. The bones are unremarkable. Impression: No acute findings
--- NOTE | 2017-01-20 13:33 | Infectious Diseases Prog Note ---
Assessment/Plan Assessment/Plan A) 1) doubt uti/pyelonephritis - urine culture negative, no dysuria, no fevers, no leukocytosis 2) kidney stone with hydronephrosis - ? passed stone, urine clearer per pt, no pain 3) pmh o/w negative, allergies - morphine 4) sh-negative, fh-nc, mar noted, notes and records reviewed 5) d/w RN P) 1) discontinue rocphin 2) stable ID standpoint for discharge 3) urology f/u 4) continue treatment per primary 5) discussed with Dr. Bullard 6) orders noted 7) d/w patient and Subjective Constitutional: Denies: fever HEENT: Denies: congestion Respiratory: Denies: shortness of breath Cardiovascular: Denies: chest pain Gastrointestinal/Abdominal: Denies: diarrhea, nausea, vomiting Genitourinary: Denies: dysuria, frequency, hematuria Neurologic: Denies: headache Psychiatric: Denies: depression Skin: Denies: rash Hematologic: Denies: bleeding Musculoskeletal: Denies: pain Allergies: Coded Allergies: MORPHINE (Verified Allergy, Mild, 02/19/14) FAINTS Objective Vital Signs Last 24 Hour Vital Signs Date Time Temp Pulse Resp B/P Pulse Ox O2 Delivery O2 Flow Rate FiO2 01/20/17 11:37 97.2 83 12 147/91 93 Room Air 83 01/20/17 07:44 96.8 86 18 145/85 86 Room Air 86 01/20/17 04:00 97.7 73 18 156/89 93 Room Air 01/19/17 23:43 97.6 80 18 126/64 96 Room Air 01/19/17 20:55 97.7 81 18 129/68 96 Room Air 01/19/17 16:08 98.8 84 20 129/76 95 Room Air 84 Height (Feet): 5 Height (Inches): 9.00 Weight (Pounds): 223 General Appearance: no acute distress HEENT: normocephalic, atraumatic, anicteric, mucous membranes moist, PERRL, EOMI, pharynx normal, supple, no JVD Respiratory/Chest: lungs clear, normal breath sounds, no respiratory distress, no accessory muscle use Cardiovascular: normal rate, regular rhythm, no gallop/murmur, no JVD Abdomen: normal bowel sounds, soft, non tender, no organomegaly, non distended Genitourinary: other - no marquez Extremities: no cyanosis Skin: no rash Neurologic/Psychiatric: advertising designer II-XII grossly normal, alert, oriented x 3, responsive Lymphatic: no neck adenopathy Musculoskeletal: no effusion Objective CT scan abdomen and pelvis: Impression: 5 mm right UVJ stone with hydronephrosis. Normal appendix Parapelvic cysts within the left kidney. Diverticulosis of the colon. No definite diverticulitis. Marquez catheter Bilateral inguinal hernias containing fat. Atherosclerotic vascular disease. Basilar atelectasis Hiatal hernia 01/20 - KUB - negative/nad Microbiology Date/Time Source Procedure Growth Status 01/18/17 15:50 Urine,Clean Catch Urine Culture - Preliminary NO GROWTH AFTER 24 HOURS Resulted Laboratory Tests Test 01/20/17 04:55 White Blood Count 5.6 K/UL (4.8-10.8) Red Blood Count 4.50 M/UL (4.70-6.10) L Hemoglobin 13.3 G/DL (14.2-18.0) L Hematocrit 39.9 % (42.0-52.0) L Mean Corpuscular Volume 89 FL (80-99) Mean Corpuscular Hemoglobin 29.6 PG (27.0-31.0) Mean Corpuscular Hemoglobin Concent 33.4 G/DL (32.0-36.0) Red Cell Distribution Width 12.3 % (11.6-14.8) Platelet Count 186 K/UL (150-450) Mean Platelet Volume 8.2 FL (6.5-10.1) Neutrophils (%) (Auto) 57.7 % (45.0-75.0) Lymphocytes (%) (Auto) 33.3 % (20.0-45.0) Monocytes (%) (Auto) 5.0 % (1.0-10.0) Eosinophils (%) (Auto) 3.2 % (0.0-3.0) H Basophils (%) (Auto) 0.9 % (0.0-2.0) Sodium Level 140 mEQ/L (135-145) Potassium Level 4.1 mEQ/L (3.4-4.9) Chloride Level 102 mEQ/L (98-107) Carbon Dioxide Level 25 mEQ/L (20-30) Anion Gap 13 (5-15) Blood Urea Nitrogen 12 mg/dL (7-23) Creatinine 1.1 mg/dL (0.7-1.2) Estimat Glomerular Filtration Rate > 60 mL/min (>60) Glucose Level 119 mg/dL (74-106) H Calcium Level 8.9 mg/dL (8.6-10.2) Current Medications Medications (Trade) Dose Ordered Sig/Gabe Route PRN Reason Start Time Stop Time Status Last Admin Dose Admin Acetaminophen (Tylenol) 650 mg Q4H PRN ORAL Mild Pain (Pain Scale 1-3) 01/18/17 20:00 02/17/17 19:59 Acetaminophen/ Hydrocodone Bitart 1 ea 1 ea Q4H PRN ORAL severe pain 01/18/17 20:00 01/25/17 19:59 Acetaminophen/ Hydrocodone Bitart (Joshua 5/325) 1 tab Q6H PRN ORAL for moderate pain 01/18/17 20:00 01/25/17 19:59 Bisacodyl (Dulcolax) 10 mg HSPRN PRN RECTAL Constipation SECOND LINE AGENT 01/18/17 20:00 02/17/17 19:59 Dextrose (Dextrose 50%) STAT PRN IV Hypoglycemia 01/18/17 20:00 02/17/17 19:59 Diphenhydramine HCl (Benadryl) 25 mg Q6H PRN ORAL Itching/Pruritis 01/18/17 20:00 02/17/17 19:59 Docusate Sodium (Colace) 100 mg EVERY 12 HOURS ORAL 01/18/17 21:00 02/17/17 20:59 01/20/17 08:21 Ketorolac Tromethamine (Toradol 30mg) 30 mg Q6H PRN IV moderate to severe pain 01/18/17 20:00 01/23/17 19:59 Ondansetron HCl (Zofran) 4 mg Q6H PRN IVP Nausea & Vomiting 01/18/17 20:00 02/17/17 19:59 Polyethylene Glycol (Miralax) 17 gm HSPRN PRN ORAL Constipation FIRST LINE AGENT 01/18/17 20:00 02/17/17 19:59 Sodium Chloride (Sodium Chloride 1000ml bag) 1,000 ml @ 100 mls/hr Q10H IV 01/18/17 21:00 02/17/17 20:59 01/20/17 03:07 Tamsulosin HCl (Flomax) 0.4 mg DAILY ORAL 01/19/17 09:00 02/18/17 08:59 01/20/17 08:21 GRZEGORZ HERNÁNDEZ January 20, 2017 13:33
--- NOTE | 2017-01-20 15:20 | Discharge Summary ---
Discharge Summary Hospital Course Date of Admission January 18, 2017 at 18:13 Date of Discharge 01/20/17 Admitting Diagnosis UTI/kidney stone/urinary retention MEGHAN Harper is a 61 year old male who was admitted on January 18, 2017 at 18:13 for Urinary Tract Infection,Kidney Stone, Discharge Discharge Disposition Patient was discharged to Discharge Diagnoses: Aleah Montague M.D. January 20, 2017 15:20
== END 2017-01-20 15:40 | disposition home or self-care (01) | DRG 694 ==
LOC: EMR 16:40 → 4W 18:13 → EDBEDREQ 18:52 → 4W 20:32
DX: N13.2 Hydronephrosis with renal and ureteral calculous obstruction (principal); N17.9 Acute kidney failure, unspecified; N39.0 Urinary tract infection, site not specified; R33.9 Retention of urine, unspecified; R31.9 Hematuria, unspecified
CPT/HCPCS: 36415; 74000; 74177; 80048; 80053; 81003; 82962; 83690; 83735; 85025; 87086

== ENCOUNTER 2017-07-24 17:01 | Emergency (ER) | payer BC ==
[~2017-07-24] VITALS: Ht 175.3 cm; Wt 99.8 kg
[2017-07-24 17:19] VITALS: BP 134/86
--- NOTE | 2017-07-24 18:15 | Emergency Room Report ---
History of Present Illness General Chief Complaint: Head, Face, Neck Trauma Source: Patient (DONAVAN ABRAMS) Present Illness HPI 62 -year-old male complains of injury to right eye status post fall at 2 PM today. Patient states that he was carrying a ladder down the stairs when he lost his footing and fell down hitting his right side of his face and catching himself with his 2 hands. Patient states he has pain along his right cheek area , that his right upper eyelid is swollen and bruised, and that he has pain in his right wrist. Denies any provoking or relieving factors. Not the medications for his symptoms. Patient denies being on any blood thinners or any chronic morbid conditions. Patient states that he has no KO, no LOC, no headache, note vision changes, urinary incontinence, fluid from the nose or ears , chest pain, shortness of breath, nausea, vomiting, photophobia, phonophobia, or any other physical complaints. (DONAVAN ABRAMS) Allergies: Coded Allergies: MORPHINE (Verified Allergy, Mild, 02/19/14) FAINTS Patient History Past Medical History: see triage record Past Surgical History: none Pertinent Family History: none Immunizations: UTD Reviewed Nursing Documentation: PMH: Agreed, PSxH: Agreed (DONAVAN ABRAMS) Nursing Documentation-PMH Past Medical History: No History, Except For Hx Cardiac Problems: No Hx Hypertension: No Hx Pacemaker: No Hx Asthma: No Hx COPD: No Hx Diabetes: No Hx Cancer: No Hx Gastrointestinal Problems: No Hx Dialysis: No History Of Psychiatric Problem: No Hx Neurological Problems: No Hx Cerebrovascular Accident: No Hx Seizures: No (DONAVAN ABARMS P.AJeovany) Review of Systems All Other Systems: negative except mentioned in HPI (DONAVAN ABRAMS) Physical Exam Vital Signs Date Time Temp Pulse Resp B/P (MAP) Pulse Ox O2 Delivery O2 Flow Rate FiO2 07/24/17 17:19 97.9 94 16 134/86 96 Room Air Sp02 EP Interpretation: reviewed, normal General Appearance: no apparent distress, alert, GCS 15, non-toxic Head: normocephalic, atraumatic Eyes: right eye other - subconjunctival hemorrhage present, right upper eyelid swollen shut with large hematoma, bilateral eye normal inspection, bilateral eye PERRL, bilateral eye EOMI ENT: hearing grossly normal, normal pharynx, no angioedema, normal voice, other - +TTP right zygomatic and temporal region, no oral or nasal trauma. 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 Iglesias is my supervising physician with whom patient management has been discussed with. (DONAVAN ABRAMS P.A.) Medicare Attestation Patient was also seen and evaluated by myself I do agree with the exam workup and evaluation Please note that given the patient's CAT scan report showing a 4 mm mild increased density in the right frontal lobe concerning for small hemorrhagic contusion I did speak to [facility] trauma service/neurosurgery Patient remains GCS 15 awake and alert And will require transfer for high level of care (MERRILL IGLESIAS D.O.) Diagnostic Impression: Primary Impression: Acute intracranial hemorrhage Additional Impressions: Contusion of right eyelid Qualified Codes: S00.11XA - Contusion of right eyelid and periocular area, initial encounter Right wrist pain ER Course Pt. presents to the ED c/o right eyelid swelling Ddx considered but are not limited to intercranial hemorrhage, glaucoma, hyphema , retinal detachment, periorbital fracture, CVA, eyelid contusion, wrist fracture, wrist sprain, wrist contusion Vital signs: are WNL, pt. is afebrile H&PE are most consistent with intercranial hemorrhage with contusion if right upper eyelid and contusion of right wrist. ORDERS / ED INTERVENTIONS: My Orders - DONAVAN ABRAMS Procedure Category Date Status Time Ct Facial Bones No CT 07/24/17 Taken Contrast 17:40 Ct Head No Contrast CT 07/24/17 Taken 17:40 Xray Wrist Complete R RAD 07/24/17 Taken 17:40 Ketorolac PHA 07/24/17 Complete Tromethamine (Toradol 18:45 Acetaminophen PHA 07/24/17 Complete (Tylenol) 19:15 Vital Signs CARE 07/24/17 Transmitted 19:07 Ekg Tracing Only CARD 07/24/17 Logged 19:07 Cardiac Monitoring CARE 07/24/17 Transmitted 19:07 Ed Pulse Oximetry CARE 07/24/17 Transmitted 19:07 Neuro Checks CARE 07/24/17 Transmitted 19:07 Iv Access / Saline CARE 07/24/17 Transmitted Lock 19:07 Aspiration Precautions CARE 07/24/17 Transmitted 19:07 Falls Precautions CARE 07/24/17 Transmitted 19:07 Cbc W/ Differential LAB 07/24/17 Complete 19:07 PT LAB 07/24/17 Complete 19:07 PTT LAB 07/24/17 Complete 19:07 CMP LAB 07/24/17 Complete 19:07 Accu Check (Ed Order) CARE 07/24/17 Transmitted 19:07 Rhythm Strip CARE 07/24/17 Transmitted 19:07 Saline 10ml Flush PHA 07/24/17 In Process (Saline 10ml Flush) 19:15 TRANSFER: At this time pt. is stable for transfer. Patient will be transferred to Neurosurgery at [facility]. (DONAVAN ABRAMS) CT/MRI/US Diagnostic Results CT/MRI/US Diagnostic Results : Imaging Test Ordered: CT Head and Facial Bones Impression There is a small 4 mm area of mild increased density in the right frontal lobe. A small hemorrhagic contusion should be considered. No evidence for significant mass effect or midline shift. No evidence for skull fracture. Soft tissue swelling in the right periorbital region. Areas of mild mucosal thickening in the paranasal sinuses. No evidence for facial bone fracture. A linear lucency is seen along the anterior and lateral sanchez of the right maxillary sinus. The lucency appears corticated and this is likely related to a vascular channel. Soft tissue swelling in the right periorbital region. Areas of mild mucosal thickening in the paranasal sinuses. Small 4-5 mm area of increased density in the right frontal lobe. A small hemorrhagic contusion should be considered. For further details, please refer to the dictation for the CT of the brain performed on the same day. (DONAVAN ABRAMS) Last Vital Signs Date Time Temp Pulse Resp B/P (MAP) Pulse Ox O2 Delivery O2 Flow Rate FiO2 07/24/17 17:19 97.9 94 16 134/86 96 Room Air (DONAVAN ABRAMS P.AJeovany) DONAVAN ABRAMS Jul 24, 2017 18:15 MERRILL IGLESIAS D.O. Jul 24, 2017 20:24
[2017-07-24] MEDS ORDERED: Ketorolac 30mg Inj IM ONE (18:45)
[2017-07-24] MEDS ORDERED: Acetaminophen 500mg (ES) tab ORAL ONE (19:15)
[2017-07-24 19:20] VITALS: BP 136/82
[2017-07-24 20:04] LABS: BASOPHILS % (AUTO) 0.5 % (0.0-2.0); EOSINOPHILS % (AUTO) 0.8 % (0.0-3.0); HEMATOCRIT 43.9 % (42.0-52.0); HEMOGLOBIN 14.5 G/DL (14.2-18.0); MEAN CORPUSCULAR VOLUME 91 FL (80-99); NEUTROPHILS % (AUTO) 74.7 % (45.0-75.0); PLATELET COUNT 170 K/UL (150-450); RED BLOOD COUNT 4.84 M/UL (4.70-6.10)
[2017-07-24 20:15] VITALS: BP 128/80
[2017-07-24 20:16] LABS: ANION GAP 9 mmol/L (5-15); BLOOD UREA NITROGEN 16 mg/dL (7-18); CARBON DIOXIDE 27 MMOL/L (21-32); CHLORIDE 101 MMOL/L (98-107); CREATININE 1.1 MG/DL (0.55-1.30); POTASSIUM 3.8 MMOL/L (3.5-5.1); SODIUM 137 MMOL/L (136-145)
[2017-07-24 20:21] LABS: ALANINE AMINOTRANSFERASE 33 U/L (12-78); ALBUMIN 3.8 G/DL (3.4-5.0); ALKALINE PHOSPHATASE 60 U/L (46-116); ASPARTATE AMINO TRANSFERASE 18 U/L (15-37); BILIRUBIN,TOTAL 0.6 MG/DL (0.2-1.0)
[2017-07-24 21:15] VITALS: BP 131/80
[2017-07-24 22:00] VITALS: BP 134/82
--- NOTE | 2017-07-25 09:48 | Diagnostic Imaging Report ---
Indication: PAIN Comparison: None Findings: 3 views of the right wrist show no acute fractures or dislocations. Bony mineralization is normal. No bony destructive lesions are identified. Joint spaces are intact. There are no erosions. Soft tissue unremarkable. Impression: No fracture or dislocation of the right wrist
--- NOTE | 2017-07-25 09:52 | Diagnostic Imaging Report ---
Indication: Pain, status post fall Comparison: None Technique: Contiguous helical CT images through the facial bones was performed. Axial, coronal and sagittal reconstructions were reformatted. CT Dose: Total DLP: 1495 mGycm; Total CTDI volume 70.4 Findings: There is no evidence of facial bone fractures. Some mucosal thickening seen in the posterior aspect of the right maxillary sinus. Otherwise, paranasal sinuses are clear. No air-fluid levels are seen to suggest facial bone fracture. M arches are intact. Mastoid air cells are clear. Several metallic dental fillings are seen. Nasal bone is intact. Impression: No evidence of facial bone fractures.
--- NOTE | 2017-07-25 09:56 | Diagnostic Imaging Report ---
Indication: Pain, status post fall Comparison: None Technique: Contiguous helical CT images through the brain was performed without intravenous contrast. Axial, coronal and sagittal reconstructions were reformatted. CT dose: Total DLP 1495 mGycm, CTDI volume 70.4 mGy Findings: There is a small 4 mm the area of mild increased density in the right frontal lobe. A small hemorrhagic contusion should be considered. No evidence for significant mass effect or midline shift. Carlitos and sulci are within normal limits. No extra-axial fluid collections. No evidence of skull fracture. Soft tissue swelling in the right periorbital region. No associated fracture. There is some mucosal thickening seen in the posterior right maxillary sinus and in the ethmoid sinuses. Impression: There is a 4 mm increased density in the right frontal lobe. A small hemorrhagic contusion should be considered. Mild paranasal sinus disease. As per statrad, the above results were communicated with Dr. Lombardo on 07/24/2017 [address] scanner at [facility] is accredited by the [employer] and the scans are performed using protocols designed to limit radiation exposure to as low as reasonably achievable to attain images of sufficient resolution adequate for diagnostic evaluation.
--- NOTE | 2017-08-01 15:54 | Cardiology Report ---
APPROVED REPORT EKG Measurement Heart [id number] Normal sinus rhythm Normal ECG
--- NOTE | 2017-08-01 15:54 | Cardiology Report ---
APPROVED REPORT EKG Measurement Heart [id number] [place] 178P52 [id number] Normal sinus rhythm Normal ECG
--- NOTE | 2017-08-01 15:54 | Cardiology Report ---
APPROVED REPORT EKG Measurement Heart [id number] [place] 178P52 [id number] Normal sinus rhythm Normal ECG
== END 2017-07-24 22:00 | disposition short-term general hospital (02) ==
LOC: EMR 20:53
DX: S06.300A Unspecified focal traumatic brain injury without loss of consciousness, initial encounter (principal); S00.11XA Contusion of right eyelid and periocular area, initial encounter; M25.531 Pain in right wrist; W19.XXXA Unspecified fall, initial encounter; Y92.89 Other specified places as the place of occurrence of the external cause
CPT/HCPCS: 36415; 70450; 70486; 80053; 82962; 85025; 85610; 85730; 93005; 99291